=== PATIENT | female | born 2000 | race African-American/Black ===

== ENCOUNTER 2019-06-10 17:44 | Emergency (ER) | payer OTHER ==
[~2019-06-10] VITALS: Ht 154.9 cm; Wt 131.0 kg
[2019-06-10] MEDS ORDERED: HYDROcodone/APAP 5/325 TABLET ONE (18:29)
[2019-06-10] MEDS ORDERED: METHOCARBAMOL 750 MG TABLET PO ONE (18:30)
[2019-06-10] MEDS ORDERED: METHOCARBAMOL 750 MG TABLET ONE (18:30)
[2019-06-10] MEDS ORDERED: HYDROcodone/APAP 5/325 TABLET PO ONE (18:30)
[2019-06-10 20:04] VITALS: BP 135/81
== END 2019-06-10 20:20 | disposition home or self-care (01) ==
LOC: ED 20:15
DX: G89.11 Acute pain due to trauma (principal); M54.2 Cervicalgia; M54.6 Pain in thoracic spine; V49.49XA Driver injured in collision with other motor vehicles in traffic accident, initial encounter; Y93.89 Activity, other specified; Y92.89 Other specified places as the place of occurrence of the external cause; Y99.8 Other external cause status
CPT/HCPCS: 72072; 72125; 99284

== ENCOUNTER 2019-09-22 13:44 | Emergency (ER) | payer OTHER ==
[~2019-09-22] VITALS: Ht 154.9 cm; Wt 128.3 kg
[2019-09-22 13:48] VITALS: BP 135/89
[2019-09-22] MEDS ORDERED: HYDROcodone/APAP 7.5-325MG/15ML UDC ONE (14:14)
[2019-09-22] MEDS ORDERED: DEXAMETHASONE 4 MG TABLET ONE (14:15)
[2019-09-22] MEDS ORDERED: HYDROcodone/APAP 7.5-325MG/15ML UDC PO ONE (14:30)
[2019-09-22] MEDS ORDERED: DEXAMETHASONE 4 MG/ML, 1ML PO ONE (14:30)
--- NOTE | 2019-09-22 16:02 | NUR ---
Patient left without DC instructions/Rx then returned to [facility] ED & given discharge instructions and Rx,they have confirmed that they understand the instructions. Patient ambulatory with steady gait.
== END 2019-09-22 16:04 | disposition home or self-care (01) ==
LOC: ED 14:11
DX: J03.00 Acute streptococcal tonsillitis, unspecified (principal); B34.9 Viral infection, unspecified; J45.909 Unspecified asthma, uncomplicated
CPT/HCPCS: 71045; 87081; 87880; 99284; J1100